=== PATIENT | female | born 1985 ===

== ENCOUNTER 2022-07-30 17:38 | Emergency (ER) | payer MEDICAID ==
[2022-07-30] MEDS ORDERED: Acetaminophen 500 MG Tab PO ONE (17:57)
[2022-07-30] MEDS ORDERED: predniSONE 20 MG Tab PO ONE (17:57)
== END 2022-07-30 19:24 | disposition home or self-care (01) ==
LOC: MW.ED 17:38
DX: J45.901 Unspecified asthma with (acute) exacerbation (principal); F17.210 Nicotine dependence, cigarettes, uncomplicated
CPT/HCPCS: 99284; A9270